=== PATIENT | male | born 1960 | race Caucasian/White ===

== ENCOUNTER 2019-02-02 17:10 | Inpatient (IN) | payer MEDICARE ==
[~2019-02-02] VITALS: Ht 175.3 cm; Wt 80.3 kg
[~2019-02-02 17:10] MED LIST: ALLO100T30; NAPR-685
--- NOTE | 2019-02-02 18:07 | NUR ---
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
--- NOTE | 2019-02-02 18:28 | NUR ---
PT HERE FOR NECK AND BACK PAIN. STATES HE HAD CERVICAL SURGERY X2. ALSO HAVING ABDOMINAL PAIN. DX WITH UTI 2 WEEKS AGO. MD AT BEDSIDE TO ASSESS PT. PT STATES HE FINISHED HIS ABX (UNSURE WHAT THEY WERE). PT RESTING ON MALA. ROLAND. VSS.
--- NOTE | 2019-02-02 18:30 | NUR ---
PT DENIES TRAUMA TO AREA. STATES PAIN STARTED WHEN HE WOKE UP. STATES HE HAS SEEN HIS NECK SURGEON TWO DAYS AGO. STATES HE IS HAVING INSURANCE ISSUES.
--- NOTE | 2019-02-02 18:37 | NUR ---
PT PROVIDED WITH URINAL FOR URINE SAMPLE.
[2019-02-02] MEDS ORDERED: METHOCARBAMOL 750 MG TABLET ONE (18:40)
[2019-02-02] MEDS ORDERED: KETOROLAC 60 MG/2 ML ONE (18:40)
--- NOTE | 2019-02-02 18:45 | NUR ---
PT MEDICATED PER EMAR. UA COLLECTED.
--- NOTE | 2019-02-02 18:53 | NUR ---
REPORT TO FREDY BANERJEE
[2019-02-02] MEDS ORDERED: METHOCARBAMOL 750 MG TABLET PO ONE (19:00)
[2019-02-02] MEDS ORDERED: KETOROLAC 30 MG/1 ML IM ONE (19:00)
[2019-02-02 19:03] LABS: CULTURE INDICATED? YES; MICROSCOPIC INDICATED
[2019-02-02 19:18] LABS: HCT (SEDRATE) 45.3 % (39.2-51.8)
[2019-02-02 19:19] LABS: BASOPHILS % (AUTO) 0 % (0-1); EOSINOPHILS # (AUTO) 0.07 x10^3/uL (0-0.4); EOSINOPHILS % (AUTO) 1 % (1-7); LYMPHOCYTES # (AUTO) 0.45 x10^3/uL (1-3.4); LYMPHOCYTES % (AUTO) 4 % (22-44); MD NO; MEAN CORPUSCULAR HEMOGLOBIN 31.7 pg (27.5-34.5); MEAN CORPUSCULAR VOLUME 93.2 fL (81-97); MEAN PLATELET VOLUME 8.1 fL (7.4-10.4); MONOCYTES # (AUTO) 1.07 x10^3/uL (0.2-0.8); MONOCYTES % (AUTO) 10 % (2-9); NEUTROPHILS # (AUTO) 9.66 x10^3/uL (1.8-6.8); NEUTROPHILS % (AUTO) 86 % (42-75); PLATELET COUNT 208 x10^3/uL (130-400); RED CELL DISTRIBUTION WIDTH 13.6 % (9.4-14.8)
[2019-02-02 19:27] LABS: ALANINE AMINOTRANSFERASE 468 U/L (12-78); ALBUMIN 4.1 g/dL (3.4-5.0); ANION GAP 10 mmol/L (5-15); CALCIUM 8.6 mg/dL (8.5-10.1); CHLORIDE 105 mmol/L (98-107); CREATININE 1.21 mg/dL (0.7-1.3)
[2019-02-02 19:33] LABS: ALKALINE PHOSPHATASE 293 U/L (45-117); BILIRUBIN,TOTAL 2.8 mg/dL (0.2-1.0); TOTAL PROTEIN 7.1 g/dL (6.4-8.2)
--- NOTE | 2019-02-02 20:29 | NUR ---
MRI SCREENING FORM DONE, IV PLACED.
[2019-02-02 20:41] LABS: AMPHETAMINE SCREEN, URINE Negative (Negative); BARBITURATE SCREEN, URINE Negative (Negative); BENZODIAZEPINE SCREEN, URINE Negative (Negative); CANNABINOID SCREEN, URINE Positive (Negative); COCAINE SCREEN, URINE Negative (Negative); METHADONE SCREEN, URINE Negative (Negative); OPIATE SCREEN, URINE Negative (Negative)
--- NOTE | 2019-02-02 21:05 | NUR ---
PT IN MRI
[2019-02-02] MEDS ORDERED: GADOBUTROL 10 MMOL/10 ML PFS ONE (22:08)
--- NOTE | 2019-02-02 22:11 | NUR ---
REPORT GIVEN TO ANGEL DANIEL. PT REMAINS IN MRI.
--- NOTE | 2019-02-02 22:55 | NUR ---
PT BACK FROM MRI, PT AWARE HE IS TO BE ADMITTED AND ROOM IS READY.
[2019-02-02 23:30] VITALS: BP 140/74
[2019-02-03] MEDS ORDERED: LIDODERM 5% PATCH TD PRN (00:30)
[2019-02-03] MEDS ORDERED: POLYETHYLENE GLYCOL 17 GM PACKET PO PRN (00:30)
[2019-02-03] MEDS ORDERED: hydrALAzine 20 MG/ML, 1ML IVPush PRN (00:30)
[2019-02-03] MEDS ORDERED: SIMETHICONE 125 MG CHEW TAB PO PRN (00:30)
[2019-02-03] MEDS ORDERED: METHOCARBAMOL 750 MG TABLET PO PRN (00:30)
[2019-02-03] MEDS ORDERED: TEMAZEPAM 15 MG CAPSULE PO PRN (00:30)
[2019-02-03 01:59] VITALS: BP 132/76
[2019-02-03] MEDS: ENOXAPARIN 40 MG/0.4 ML SQ SCH (05:16)
[2019-02-03] MEDS: NICOTINE 21 MG/24 HR PATCH.TD24 TD SCH (05:16)
[2019-02-03] MEDS: INSULIN LISPRO 100 UNITS/ML, PEN SQ-INSULIN SCH ×4 (07:00→20:17)
[2019-02-03 07:22] VITALS: BP 114/69
[2019-02-03] MEDS ORDERED: OMNIPAQUE 350 MG/ML, 100ML BOTTLE ONE (10:38)
[2019-02-03 12:03] LABS: INTERNATIONAL NORMALIZED RATIO 1.1 (0.93-1.1); PROTHROMBIN TIME 11.5 Seconds (9.6-11.5)
[2019-02-03 14:06] VITALS: BP 117/69
[2019-02-03] MEDS: KETOROLAC 30 MG/1 ML IM PRN (18:31)
[2019-02-03 18:37] VITALS: BP 107/65
[2019-02-04 02:30] VITALS: BP 110/67
[2019-02-04] MEDS: NICOTINE 21 MG/24 HR PATCH.TD24 TD SCH (05:09)
[2019-02-04 05:42] LABS: BASOPHILS # (AUTO) 0.02 x10^3/uL (0-0.1); BASOPHILS % (AUTO) 0 % (0-1); EOSINOPHILS # (AUTO) 0.21 x10^3/uL (0-0.4); EOSINOPHILS % (AUTO) 3 % (1-7); LYMPHOCYTES # (AUTO) 1.08 x10^3/uL (1-3.4); LYMPHOCYTES % (AUTO) 13 % (22-44); MD NO; MEAN CORPUSCULAR HEMOGLOBIN 31.4 pg (27.5-34.5); MEAN CORPUSCULAR HGB CONC 33.5 g/dL (33.2-36.2); MEAN CORPUSCULAR VOLUME 93.8 fL (81-97); MEAN PLATELET VOLUME 8.1 fL (7.4-10.4); MONOCYTES # (AUTO) 0.91 x10^3/uL (0.2-0.8); MONOCYTES % (AUTO) 11 % (2-9); NEUTROPHILS # (AUTO) 5.85 x10^3/uL (1.8-6.8); NEUTROPHILS % (AUTO) 73 % (42-75); PLATELET COUNT 183 x10^3/uL (130-400); RED CELL DISTRIBUTION WIDTH 13.6 % (9.4-14.8)
[2019-02-04 05:48] LABS: ALBUMIN 3.3 g/dL (3.4-5.0); ANION GAP 5 mmol/L (5-15); CALCIUM 8.9 mg/dL (8.5-10.1); CHLORIDE 108 mmol/L (98-107)
[2019-02-04 05:53] LABS: ALANINE AMINOTRANSFERASE 273 U/L (12-78); ALKALINE PHOSPHATASE 396 U/L (45-117); BILIRUBIN,TOTAL 3.7 mg/dL (0.2-1.0); CREATININE 1.06 mg/dL (0.7-1.3); TOTAL PROTEIN 6.7 g/dL (6.4-8.2)
[2019-02-04 06:32] VITALS: BP 110/65
[2019-02-04] MEDS: INSULIN LISPRO 100 UNITS/ML, PEN SQ-INSULIN SCH ×4 (07:00→21:00)
[2019-02-04] MEDS ORDERED: SINCALIDE (KINEVAC) 5 MCG ONE (09:39)
[2019-02-04] MEDS: ENOXAPARIN 40 MG/0.4 ML SQ SCH (11:41)
[2019-02-04 13:54] VITALS: BP 138/75
[2019-02-04 20:50] VITALS: BP 127/70
[2019-02-05 03:02] VITALS: BP 123/66
[2019-02-05 05:37] LABS: BASOPHILS # (AUTO) 0.03 x10^3/uL (0-0.1); BASOPHILS % (AUTO) 0 % (0-1); EOSINOPHILS # (AUTO) 0.21 x10^3/uL (0-0.4); EOSINOPHILS % (AUTO) 3 % (1-7); LYMPHOCYTES # (AUTO) 1.52 x10^3/uL (1-3.4); LYMPHOCYTES % (AUTO) 19 % (22-44); MD NO; MEAN CORPUSCULAR HEMOGLOBIN 31.3 pg (27.5-34.5); MEAN CORPUSCULAR HGB CONC 34.3 g/dL (33.2-36.2); MEAN CORPUSCULAR VOLUME 91.5 fL (81-97); MONOCYTES # (AUTO) 1.04 x10^3/uL (0.2-0.8); MONOCYTES % (AUTO) 13 % (2-9); NEUTROPHILS # (AUTO) 5.42 x10^3/uL (1.8-6.8); NEUTROPHILS % (AUTO) 66 % (42-75); PLATELET COUNT 208 x10^3/uL (130-400); RED BLOOD COUNT 5.04 x10^6/uL (4.38-5.82); RED CELL DISTRIBUTION WIDTH 13.9 % (9.4-14.8)
[2019-02-05 05:48] LABS: ALBUMIN 3.3 g/dL (3.4-5.0); ANION GAP 4 mmol/L (5-15); CALCIUM 8.6 mg/dL (8.5-10.1); CHLORIDE 107 mmol/L (98-107)
[2019-02-05 05:53] LABS: ALANINE AMINOTRANSFERASE 194 U/L (12-78); ALKALINE PHOSPHATASE 400 U/L (45-117); BILIRUBIN,TOTAL 1.7 mg/dL (0.2-1.0); CREATININE 0.89 mg/dL (0.7-1.3); TOTAL PROTEIN 6.9 g/dL (6.4-8.2)
[2019-02-05 06:56] VITALS: BP 100/57
[2019-02-05] MEDS: INSULIN LISPRO 100 UNITS/ML, PEN SQ-INSULIN SCH ×4 (07:00→21:30)
[2019-02-05] MEDS: ENOXAPARIN 40 MG/0.4 ML SQ SCH (10:28)
[2019-02-05] MEDS: NICOTINE 21 MG/24 HR PATCH.TD24 TD SCH (10:28)
[2019-02-05] MEDS: KETOROLAC 30 MG/1 ML IM PRN ×2 (12:49→21:30)
[2019-02-05 13:03] VITALS: BP 122/71
[2019-02-05] MEDS ORDERED: BUPIVACAINE/PF 0.25% ONE (13:29)
[2019-02-05] MEDS: D5%-0.45NACL+KCL 20MEQ 1,000 ML IV SCH (13:57)
[2019-02-05] MEDS ORDERED: MIDAZOLAM 1 MG/ML, 2ML ONE (14:43)
[2019-02-05] MEDS ORDERED: FENTANYL PF 250 MCG/5ML ONE (14:44)
[2019-02-05] MEDS ORDERED: CEFAZOLIN 1,000 MG ONE (14:45)
[2019-02-05] MEDS ORDERED: ROCURONIUM 10MG/ML,5ML ONE (14:45)
[2019-02-05] MEDS ORDERED: DEXAMETHASONE 4 MG/ML, 1ML ONE ×2 (14:45)
[2019-02-05] MEDS ORDERED: PROPOFOL 10 MG/ML, 20ML ONE (14:45)
[2019-02-05] MEDS ORDERED: SUCCINYLCHOLINE 20 MG/ML, 10ML ONE (14:45)
[2019-02-05] MEDS ORDERED: KETOROLAC 30 MG/1 ML ONE (14:49)
[2019-02-05] MEDS ORDERED: SUGAMMADEX 200 MG/2 ML IVPush ONE (15:14)
[2019-02-05] MEDS ORDERED: HALOPERIDOL 5 MG/ML IV PRN (15:30)
[2019-02-05] MEDS ORDERED: PROMETHAZINE 25 MG/ML, 1ML IV PRN (15:30)
[2019-02-05] MEDS ORDERED: DIAZEPAM 5 MG/ML, 2ML IVPush PRN (15:30)
[2019-02-05] MEDS ORDERED: MEPERIDINE/PF 25MG/ML,1ML IVPush PRN (15:30)
[2019-02-05] MEDS ORDERED: HYDROmorphone 2 MG/ML, 1ML IVPush PRN (15:30)
[2019-02-05] MEDS ORDERED: OXYcodone 5 MG/5 ML ORAL.SOL UDC PO PRN (15:30)
[2019-02-05] MEDS ORDERED: hydrALAzine 20 MG/ML, 1ML IV PRN (15:30)
[2019-02-05] MEDS ORDERED: ONDANSETRON ODT 8 MG PO PRN (15:30)
[2019-02-05] MEDS ORDERED: ALBUTEROL SULFATE 2.5 MG/3 ML NPPB PRN (15:30)
[2019-02-05] MEDS ORDERED: EPHEDRINE 50 MG/ML, 1ML IVPush PRN (15:30)
[2019-02-05] MEDS ORDERED: ONDANSETRON 2MG/ML, 2ML IV PRN (15:30)
[2019-02-05] MEDS ORDERED: LABETALOL 5MG/ML, 20ML IV PRN (15:30)
[2019-02-05] MEDS ORDERED: MIDAZOLAM 1 MG/ML, 2ML IV PRN (15:30)
[2019-02-05] MEDS ORDERED: PROMETHAZINE 12.5 MG SUPP PR PRN (15:30)
[2019-02-05] MEDS ORDERED: FENTANYL PF 100 MCG/2ML ONE (15:44)
[2019-02-05] MEDS ORDERED: ONDANSETRON 2MG/ML, 2ML ONE (15:44)
[2019-02-05] MEDS: FENTANYL PF 100 MCG/2ML IV PRN ×2 (15:47→15:59)
[2019-02-05 16:35] VITALS: BP 112/96
[2019-02-05 19:48] VITALS: BP 134/84
[2019-02-06] MEDS ORDERED: KETOROLAC 30 MG/1 ML IVPush PRN
[2019-02-06 00:38] VITALS: BP 147/75
[2019-02-06] MEDS: D5%-0.45NACL+KCL 20MEQ 1,000 ML IV SCH (03:13)
[2019-02-06 07:20] VITALS: BP 128/77
[2019-02-06] MEDS: INSULIN LISPRO 100 UNITS/ML, PEN SQ-INSULIN SCH (07:39)
[2019-02-06] MEDS ORDERED: METH750T2 PO (09:08)
[2019-02-07 16:17] LABS: ANA SCREEN NEGATIVE (Negative)
== END 2019-02-06 09:47 | disposition home or self-care (01) | DRG 419 ==
LOC: ED 20:15 → EDIP 21:56 → 3N 23:22 → 4NE 02-05 16:36 → DCLOUNGE 02-06 09:37
PROVIDERS: ADMIT Internal Medicine; ATTEND Internal Medicine
PROC: 0FT44ZZ Resection of Gallbladder, Percutaneous Endoscopic Approach (ICD-10-PCS; principal; 2019-02-05 15:45)
DX: K80.10 Calculus of gallbladder with chronic cholecystitis without obstruction (principal); M48.00 Spinal stenosis, site unspecified; M54.6 Pain in thoracic spine; K75.9 Inflammatory liver disease, unspecified; K76.0 Fatty (change of) liver, not elsewhere classified; Z88.6 Allergy status to analgesic agent; Z88.0 Allergy status to penicillin; E11.9 Type 2 diabetes mellitus without complications; F12.90 Cannabis use, unspecified, uncomplicated; F17.210 Nicotine dependence, cigarettes, uncomplicated; G89.29 Other chronic pain; M54.9 Dorsalgia, unspecified; I10 Essential (primary) hypertension; K82.8 Other specified diseases of gallbladder; Z98.1 Arthrodesis status
CPT/HCPCS: 36415; 72156; 72157; 72158; 74177; 76700; 78227; 80053; 80074; 80307; 81001; 82378; 82962; 83690; 83735; 85025; 85610; 85651; 85730; 86038; 86140; 87077; 87086; 87186; 88304; 93017; A9585; G0378; J0690; J1100; J1650; J1885; J2250; J2704; J3010; J3490; Q0162; Q9967; A9502; C9898; J0330; J1815; J2805; J3480

== ENCOUNTER 2019-09-11 09:41 | Outpatient (CLI) | payer MEDICARE ==
[~2019-09-11 09:41] MED LIST changes: +METH750T2 PO
== END 2019-09-11 23:59 | disposition home or self-care (01) ==
LOC: CFH 09:41
PROVIDERS: ATTEND Internal Medicine Gastroenterology
DX: R16.0 Hepatomegaly, not elsewhere classified (principal); R94.5 Abnormal results of liver function studies; K57.30 Diverticulosis of large intestine without perforation or abscess without bleeding; M47.815 Spondylosis without myelopathy or radiculopathy, thoracolumbar region; Z90.49 Acquired absence of other specified parts of digestive tract
CPT/HCPCS: 74181